=== PATIENT | male | born 1970 | race African-American/Black ===

== ENCOUNTER 2021-07-30 02:52 | Emergency (ER) | payer SELFPAY ==
[~2021-07-30] VITALS: Ht 175.3 cm; Wt 99.8 kg
--- NOTE | 2021-07-30 04:15 | NUR ---
PATIENT ACCEPTED TO [facility] TRAUMA SURGEON ABDON REPORT GIVEN TO PSYCHOLOGIST ENGINEERINGJEWELL CASAS
[2021-07-30 04:49] LABS: BASOPHILS # (AUTO) 0.1 K/uL (0.0-0.2); BASOPHILS % (AUTO) 0.5 % (0.0-2.0); EOSINOPHILS % (AUTO) 0.3 % (0.0-6.0); HEMATOCRIT 47 % (39-51); HEMOGLOBIN 15.3 g/dL (13.5-17.5); LYMPHOCYTES # (AUTO) 1.7 K/uL (0.8-4.8); LYMPHOCYTES % (AUTO) 12.9 % (20.0-44.0); MEAN CORPUSCULAR HGB CONC 33 g/dl (31.0-36.0); MEAN CORPUSCULAR VOLUME 83 fL (80-96); MONOCYTES # (AUTO) 0.7 K/uL (0.1-1.30); MONOCYTES % (AUTO) 5.4 % (2.0-12.0); NEUTROPHILS # (AUTO) 10.9 K/uL (1.8-8.9); NEUTROPHILS % (AUTO) 80.9 % (43.0-81.0); PLATELET COUNT (AUTO) 202 K/uL (150-450); RED BLOOD CELL COUNT(AUTO) 5.69 MIL/uL (4.5-6.0); WHITE BLOOD COUNT (AUTO) 13.4 K/uL (4.3-11.0)
--- NOTE | 2021-07-30 04:54 | NUR ---
TRANSPORT [facility]IA [facility] BLS IS SET. ETA IS 30-40 MINS PER COLME Addendum: 07/30/21 at 0455 by [facility]KEN[facility] TRANSPORT IS SET UP FOR PT TO GO TO [place] [facility]IA [facility] IN 30-40 MINS PER KARIS.
[2021-07-30 05:02] LABS: CALCIUM, SERUM 9.2 mg/dL (8.5-10.1); CARBON DIOXIDE 24 mmol/L (21-32); CHLORIDE 106 mmol/L (98-107); CREATININE 1.4 mg/dL (0.6-1.3); GLUCOSE 171 mg/dL (74-106); POTASSIUM 3.7 mmol/L (3.5-5.1); SODIUM SERUM 144 mmol/L (136-145); UREA NITROGEN, BLOOD 15 mg/dL (7-18)
[2021-07-30 05:08] LABS: ALANINE AMINOTRANSFERASE 18 U/L (12-78); ALBUMIN 3.8 g/dL (3.4-5.0); ALCOHOL, BLOOD < 3 mg/dL (0-0); ALKALINE PHOSPHATASE 69 U/L (46-116); ASPARTATE AMINOTRANSFERASE 22 U/L (15-37); BILIRUBIN,TOTAL 0.2 mg/dL (0.2-1.0); TOTAL PROTEIN, SERUM 7.6 g/dL (6.4-8.2)
[2021-07-30 05:10] LABS: LYMPHOCYTES % (MANUAL) 13 % (16-48); MONOCYTES % (MANUAL) 6 % (0-11.0); NEUTROPHILS % (MANUAL) 81 (42-76)
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
[2021-07-30] MEDS ORDERED: IOHEXOL-350 100 ML VIAL IV ONE (05:18)
[2021-07-30] MEDS ORDERED: IV NS 0.9% 250 ML IV ONE (05:19)
[2021-07-30] MEDS ORDERED: CT SWABBABLE VALVE TRANS SET 1 EA INFUS.SET MC ONE (05:19)
--- NOTE | 2021-07-30 05:58 | NUR ---
FOLLOWED UP WITH [facility] REGARDING TRANSPORT. NEW ETA IS IN 5-10 MINS.
--- NOTE | 2021-07-30 06:24 | NUR ---
EMS AT BEDSIDE, REPROT GIVEN, PATIENT VSS.
[2021-07-30 06:33] VITALS: BP 146/83
== END 2021-07-30 06:34 | disposition short-term general hospital (02) ==
LOC: ER 02:54
DX: S12.090A Other displaced fracture of first cervical vertebra, initial encounter for closed fracture (principal); S12.100A Unspecified displaced fracture of second cervical vertebra, initial encounter for closed fracture; S03.01XA Dislocation of jaw, right side, initial encounter; S12.200A Unspecified displaced fracture of third cervical vertebra, initial encounter for closed fracture; V49.88XA Car occupant (driver) (passenger) injured in other specified transport accidents, initial encounter; Y92.410 Unspecified street and highway as the place of occurrence of the external cause; R53.1 Weakness; S15.102A Unspecified injury of left vertebral artery, initial encounter; Z20.822 Contact with and (suspected) exposure to COVID-19
CPT/HCPCS: 36415; 70450; 70496; 70498; 71045; 72125; 72128; 80053; 80320; 85007; 85025; 85610; 85730; 87426; 99291; C9803; J7050; Q9967; G0480